=== PATIENT | female | born 1950 | race Caucasian/White ===

== ENCOUNTER 2021-01-06 12:05 | Outpatient (CLI) | payer MEDICARE | END 2021-01-06 12:06 | disposition home or self-care (01) | LOC: CSHRAD 12:05 | PROVIDERS: ATTEND Surgery | DX: S32.009A Unspecified fracture of unspecified lumbar vertebra, initial encounter for closed fracture (principal); M48.061 Spinal stenosis, lumbar region without neurogenic claudication; S32.041D Stable burst fracture of fourth lumbar vertebra, subsequent encounter for fracture with routine healing | CPT/HCPCS: 72100 ==

== ENCOUNTER 2021-07-12 16:16 | Emergency (ER) | payer MEDICARE | END 2021-07-12 18:08 | disposition home or self-care (01) | LOC: CSHERS 16:16 | DX: T25.211A Burn of second degree of right ankle, initial encounter (principal); T31.0 Burns involving less than 10% of body surface; T79.8XXA Other early complications of trauma, initial encounter; R23.8 Other skin changes; I10 Essential (primary) hypertension; E11.40 Type 2 diabetes mellitus with diabetic neuropathy, unspecified; F17.210 Nicotine dependence, cigarettes, uncomplicated; X10.0XXA Contact with hot drinks, initial encounter; Z79.84 Long term (current) use of oral hypoglycemic drugs; Z79.899 Other long term (current) drug therapy | CPT/HCPCS: 99283 ==

== ENCOUNTER 2022-05-11 22:22 | Inpatient (IN) | payer MEDICARE ==
[~2022-05-11 22:22] MED LIST: Iopamidol 370 76% 100 ML VIAL ONE
[2022-05-11] MEDS ORDERED: Cefepime 2 GM VIAL ONE (22:53)
[2022-05-11 23:30] LABS: Hemoglobin 13.6 g/dL (12.0-15.5); Mean Corpuscular HGB CONC 32.4 g/dL (32.0-36.0); Mean Corpuscular Hemoglobin 26.1 pg (27.0-33.0); Mean Corpuscular Volume 80.6 fl (81.6-98.3); Mean Platelet Volume 10.8 fl (7.4-10.4); Platelet Count 334 10x3/uL (150-450); RBC Distribution Width 16.6 % (11.5-14.5); Red Blood Cell (RBC) Count 5.21 10x6/uL (3.90-5.03); White Blood Cell (WBC) Count 33.2 10x3/uL (3.5-10.5)
[2022-05-11 23:46] LABS: Bilirubin Neg (Negative); Blood, Urine 25 (Negative); Clarity Cloudy (Clear); Glucose, Urine (Dipstick) 50 mg/dL (Negative); Ketone, Urine 5 mg/dL (Negative); Leukocyte 100 (Negative); Nitrite Positive (Negative); Protein, Urine (Dipstick) 500 mg/dl (Neg-Trace); Urobilinogen Normal mg/dL (Less than 2)
[2022-05-11 23:47] LABS: ALT (SGPT) 13 U/L (8-55); AST (SGOT) 14 U/L (5-34); Albumin 4.2 g/dL (3.4-4.8); Alkaline Phosphatase 91 U/L (40-110); Anion Gap 16 mmol/L (10-20); BUN (Urea Nitrogen) 16 mg/dL (9.8-20.1); Bilirubin, Total 0.5 mg/dL (0.2-1.2); Calc. Creatinine Clearance 0 mL/min (70-130); Calcium 9.4 mg/dL (7.8-10.44); Carbon Dioxide 27 mmol/L (23-31); Chloride 101 mmol/L (98-107); Estimated GFR 79; Globulin 3.5 g/dL (2.4-3.5); Glucose 232 mg/dL (80-115); Potassium 3.5 mmol/L (3.5-5.1); Protein, Total 7.7 g/dL (5.8-8.1); Sodium 140 mmol/L (136-145)
[2022-05-12 00:19] LABS: MDiff Complete? YES
[2022-05-12 00:28] LABS: Bacteria/HPF 3+ HPF (None Seen); RBC/HPF 0-3 HPF (0-3); Renal Epithelial 0-3 HPF (None Seen); WBC/HPF 21-50 HPF (0-3)
[2022-05-12 00:40] LABS: SARS-CoV-2 NAA Rapid Test Not Detected (NotDetected)
[2022-05-12 01:04] LABS: Lymphocytes 4 % (21-51); Monocytes 2 % (0-10); Neutrophil 94 % (42-75)
[2022-05-12 01:05] LABS: Platelet Morphology Comment Appears Adequate; RBC Morphology Normal
[2022-05-12] MEDS ORDERED: Senokot S 8.6-50 MG TAB PO PRN (02:10)
[2022-05-12] MEDS ORDERED: Dextrose 50% Abboject 50 ML SYRINGE SLOW IVP PRN ×2 (02:10→11:59)
[2022-05-12] MEDS ORDERED: Ondansetron PF 4 MG/2 ML Vial IVP PRN (02:10)
[2022-05-12] MEDS ORDERED: Calcium Carbonate 500 MG ChewTAB PO PRN (02:10)
[2022-05-12] MEDS ORDERED: Dextrose 5% in Water 1,000 ML IV PRN ×2 (02:10→11:59)
[2022-05-12] MEDS ORDERED: Guaifenesin DM 100-10/5 ML UDCUP PO PRN (02:10)
[2022-05-12] MEDS ORDERED: Pharmacy to Dose ABX/VANCOMYCIN IVPB PRN (02:26)
[2022-05-12] MEDS ORDERED: Lactated Ringer's 1,000 ML IV SCH (03:15)
[2022-05-12 05:18] LABS: Hemoglobin 12.2 g/dL (12.0-15.5); Mean Corpuscular Hemoglobin 26.1 pg (27.0-33.0); Mean Corpuscular Volume 81.6 fl (81.6-98.3); Mean Platelet Volume 11.1 fl (7.4-10.4); Platelet Count 280 10x3/uL (150-450); Red Blood Cell (RBC) Count 4.67 10x6/uL (3.90-5.03); White Blood Cell (WBC) Count 29.2 10x3/uL (3.5-10.5)
[2022-05-12 05:35] LABS: Anion Gap 11 mmol/L (10-20); BUN (Urea Nitrogen) 15 mg/dL (9.8-20.1); Calc. Creatinine Clearance 0 mL/min (70-130); Calcium 8.3 mg/dL (7.8-10.44); Carbon Dioxide 25 mmol/L (23-31); Chloride 105 mmol/L (98-107); Estimated GFR 86; Glucose 204 mg/dL (80-115); Potassium 3.3 mmol/L (3.5-5.1); Sodium 138 mmol/L (136-145)
[2022-05-12] MEDS: Levothyroxine Sodium 50 MCG TAB PO SCH (05:58)
[2022-05-12 06:27] LABS: MDiff Complete? YES
[2022-05-12] MEDS ORDERED: Acetaminophen 325 MG TAB ONE (06:49)
[2022-05-12] MEDS: Acetaminophen 325 MG TAB PO PRN (07:00)
[2022-05-12] MEDS ORDERED: Enoxaparin Sodium 40 MG/0.4 ML SYRINGE ONE (07:59)
[2022-05-12] MEDS ORDERED: Insulin Regular 300 UNITS/3 ML VIAL ONE (07:59)
[2022-05-12] MEDS: Enoxaparin Sodium 40 MG/0.4 ML SYRINGE SC SCH (08:59)
[2022-05-12] MEDS: Ezetimibe 10 MG TAB PO SCH (08:59)
[2022-05-12] MEDS ORDERED: Alogliptin 25 MG TAB PO SCH (09:00)
[2022-05-12] MEDS: Cefepime 1 GM in Sodium Chloride 0.9% 100 ML IVPB SCH ×2 (11:36→23:42)
[2022-05-12] MEDS ORDERED: Cefepime 1 GM VIAL ONE (11:48)
[2022-05-12 11:50] VITALS: BMI 39.4
[2022-05-12] MEDS: Vancomycin HCl 1 GM in Sodium Chloride 0.9% 250 ML 250 ML IVPB SCH (12:34)
[2022-05-13] MEDS: Vancomycin HCl 1 GM in Sodium Chloride 0.9% 250 ML 250 ML IVPB SCH ×2 (01:15→11:10)
[2022-05-13] MEDS: Levothyroxine Sodium 50 MCG TAB PO SCH (06:32)
[2022-05-13] MEDS: Enoxaparin Sodium 40 MG/0.4 ML SYRINGE SC SCH (08:49)
[2022-05-13] MEDS: Alogliptin 25 MG TAB PO SCH (08:49)
[2022-05-13] MEDS: Gabapentin 300 MG CAP PO SCH ×2 (08:49→20:30)
[2022-05-13] MEDS: Ezetimibe 10 MG TAB PO SCH (08:50)
[2022-05-13] MEDS: Lisinopril 20 MG TAB PO SCH (08:50)
[2022-05-13] MEDS: Hydrochlorothiazide 25 MG TAB PO SCH (08:50)
[2022-05-13] MEDS: Cefepime 1 GM in Sodium Chloride 0.9% 100 ML IVPB SCH ×2 (11:10→23:29)
[2022-05-13] MEDS ORDERED: Cefepime 1 GM VIAL ONE (11:13)
[2022-05-13 11:32] LABS: Vancomycin, Trough 9.9 ug/mL
[2022-05-13] MEDS: metFORMIN 500 MG TAB PO SCH (18:03)
[2022-05-13] MEDS: Rosuvastatin 10 MG TAB PO SCH (20:30)
[2022-05-13] MEDS: Acetaminophen 325 MG TAB PO PRN (23:32)
[2022-05-14] MEDS: VANCOMYCIN 1.25 GM/250 ML BAG 1.25 GM in Premix Bag 1 BAG IVPB SCH ×2 (01:11→12:12)
[2022-05-14] MEDS: HumaLOG 300 UNITS/3 ML VIAL SC PRN ×2 (01:14→12:30)
[2022-05-14] MEDS: Levothyroxine Sodium 50 MCG TAB PO SCH (07:17)
[2022-05-14 08:53] LABS: #Basophils 0.1 10x3/uL (0.0-0.2); #Eosinphils 0.5 10x3/uL (0.0-0.5); #Monocytes 0.9 10x3/uL (0.0-1.1); #Neutrophils 8.4 10x3/uL (1.5-8.4); %Basophils 0.5 % (0.0-2.0); %Eosinophils 4.5 % (0.0-6.0); %Lymphocytes 17.3 % (18.0-47.0); %Monocytes 7.8 % (0.0-10.0); %Neutrophils 69.2 % (40.0-75.0); Hemoglobin 11.8 g/dL (12.0-15.5); Mean Corpuscular HGB CONC 30.1 g/dL (32.0-36.0); Mean Corpuscular Hemoglobin 24.8 pg (27.0-33.0); Mean Corpuscular Volume 82.4 fl (81.6-98.3); Mean Platelet Volume 10.8 fl (7.4-10.4); Platelet Count 295 10x3/uL (150-450); RBC Distribution Width 16.8 % (11.5-14.5); Red Blood Cell (RBC) Count 4.76 10x6/uL (3.90-5.03); White Blood Cell (WBC) Count 12.1 10x3/uL (3.5-10.5)
[2022-05-14] MEDS: metFORMIN 500 MG TAB PO SCH ×2 (08:56→16:07)
[2022-05-14] MEDS: Ezetimibe 10 MG TAB PO SCH (08:56)
[2022-05-14] MEDS: Enoxaparin Sodium 40 MG/0.4 ML SYRINGE SC SCH (08:56)
[2022-05-14] MEDS: Hydrochlorothiazide 25 MG TAB PO SCH (08:56)
[2022-05-14] MEDS: Lisinopril 20 MG TAB PO SCH (08:56)
[2022-05-14] MEDS: Alogliptin 25 MG TAB PO SCH (08:56)
[2022-05-14] MEDS: Gabapentin 300 MG CAP PO SCH ×2 (08:57→21:30)
[2022-05-14 09:14] LABS: Anion Gap 14 mmol/L (10-20); BUN (Urea Nitrogen) 16 mg/dL (9.8-20.1); Calc. Creatinine Clearance 126 mL/min (70-130); Calcium 8.7 mg/dL (7.8-10.44); Carbon Dioxide 25 mmol/L (23-31); Chloride 103 mmol/L (98-107); Estimated GFR 86; Glucose 173 mg/dL (80-115); Magnesium 2.1 mg/dL (1.6-2.6); Potassium 3.2 mmol/L (3.5-5.1); Sodium 139 mmol/L (136-145)
[2022-05-14] MEDS ORDERED: Polyethylene Glycol 3350 17 GM Packet PO SCH (11:45)
[2022-05-14] MEDS: Cefepime 2 GM in Sodium Chloride 0.9% 100 ML IVPB SCH ×2 (12:12→23:00)
[2022-05-14 12:56] LABS: Hemoglobin A1c 7.9 % (4.0-6.0)
[2022-05-14] MEDS: Rosuvastatin 10 MG TAB PO SCH (21:30)
[2022-05-14] MEDS: Senokot S 8.6-50 MG TAB PO SCH (22:16)
[2022-05-15] MEDS: VANCOMYCIN 1.25 GM/250 ML BAG 1.25 GM in Premix Bag 1 BAG IVPB SCH (00:57)
[2022-05-15] MEDS: Levothyroxine Sodium 50 MCG TAB PO SCH (05:49)
[2022-05-15 05:51] LABS: #Basophils 0.1 10x3/uL (0.0-0.2); #Eosinphils 0.7 10x3/uL (0.0-0.5); #Monocytes 0.9 10x3/uL (0.0-1.1); #Neutrophils 6.4 10x3/uL (1.5-8.4); %Basophils 0.6 % (0.0-2.0); %Eosinophils 6.7 % (0.0-6.0); %Lymphocytes 23.7 % (18.0-47.0); %Neutrophils 60.4 % (40.0-75.0); Hemoglobin 11.3 g/dL (12.0-15.5); Mean Corpuscular Hemoglobin 25.5 pg (27.0-33.0); Mean Corpuscular Volume 82.2 fl (81.6-98.3); Mean Platelet Volume 11.2 fl (7.4-10.4); Platelet Count 282 10x3/uL (150-450); RBC Distribution Width 16.3 % (11.5-14.5); Red Blood Cell (RBC) Count 4.43 10x6/uL (3.90-5.03); White Blood Cell (WBC) Count 10.6 10x3/uL (3.5-10.5)
[2022-05-15 06:08] LABS: ALT (SGPT) 13 U/L (8-55); AST (SGOT) 15 U/L (5-34); Albumin 3.3 g/dL (3.4-4.8); Alkaline Phosphatase 68 U/L (40-110); Anion Gap 14 mmol/L (10-20); BUN (Urea Nitrogen) 15 mg/dL (9.8-20.1); Bilirubin, Direct 0.1 mg/dL (0.1-0.3); Bilirubin, Total 0.4 mg/dL (0.2-1.2); Calc. Creatinine Clearance 131 mL/min (70-130); Calcium 8.5 mg/dL (7.8-10.44); Carbon Dioxide 24 mmol/L (23-31); Chloride 105 mmol/L (98-107); Cholesterol 203 mg/dl (< 200 Desired); Estimated GFR 90; Glucose 174 mg/dL (80-115); HDL Cholesterol 29 mg/dL (>60 Neg Risk); LDL Cholesterol, Calculated 129 mg/dL; Magnesium 1.9 mg/dL (1.6-2.6); Potassium 3.1 mmol/L (3.5-5.1); Protein, Total 6.1 g/dL (5.8-8.1); Sodium 140 mmol/L (136-145); Triglycerides 224 mg/dL (Less than 150)
[2022-05-15] MEDS: Hydrochlorothiazide 25 MG TAB PO SCH (08:31)
[2022-05-15] MEDS: Lisinopril 20 MG TAB PO SCH (08:31)
[2022-05-15] MEDS: Senokot S 8.6-50 MG TAB PO SCH ×2 (08:31→22:24)
[2022-05-15] MEDS: Enoxaparin Sodium 40 MG/0.4 ML SYRINGE SC SCH (08:31)
[2022-05-15] MEDS: Alogliptin 25 MG TAB PO SCH (08:31)
[2022-05-15] MEDS: Ezetimibe 10 MG TAB PO SCH (08:31)
[2022-05-15] MEDS: Polyethylene Glycol 3350 17 GM Packet PO SCH (08:31)
[2022-05-15] MEDS: Gabapentin 300 MG CAP PO SCH ×2 (08:31→22:23)
[2022-05-15] MEDS: metFORMIN 500 MG TAB PO SCH ×2 (08:31→16:43)
[2022-05-15] MEDS ORDERED: hydrALAZINE 20 MG/ML VIAL SLOW IVP PRN (10:17)
[2022-05-15] MEDS: HumaLOG 300 UNITS/3 ML VIAL SC PRN ×3 (12:15→22:24)
[2022-05-15] MEDS: Potassium Chloride 20 MEQ TAB PO SCH (12:15)
[2022-05-15] MEDS: Rosuvastatin 10 MG TAB PO SCH (22:24)
[2022-05-15] MEDS: Ciprofloxacin 500 MG TAB PO SCH (22:24)
[2022-05-16] MEDS: Ciprofloxacin 500 MG TAB PO SCH ×2 (06:02→21:44)
[2022-05-16] MEDS: Levothyroxine Sodium 50 MCG TAB PO SCH (06:02)
[2022-05-16] MEDS: HumaLOG 300 UNITS/3 ML VIAL SC PRN ×4 (06:04→21:45)
[2022-05-16 06:18] LABS: #Basophils 0.1 10x3/uL (0.0-0.2); #Eosinphils 0.7 10x3/uL (0.0-0.5); #Monocytes 0.8 10x3/uL (0.0-1.1); #Neutrophils 6.7 10x3/uL (1.5-8.4); %Basophils 0.7 % (0.0-2.0); %Eosinophils 6.3 % (0.0-6.0); %Lymphocytes 21.5 % (18.0-47.0); %Monocytes 7.8 % (0.0-10.0); %Neutrophils 62.7 % (40.0-75.0); Hemoglobin 11.2 g/dL (12.0-15.5); Mean Corpuscular HGB CONC 31.4 g/dL (32.0-36.0); Mean Corpuscular Hemoglobin 25.6 pg (27.0-33.0); Mean Corpuscular Volume 81.7 fl (81.6-98.3); Mean Platelet Volume 11.3 fl (7.4-10.4); Platelet Count 293 10x3/uL (150-450); RBC Distribution Width 16.1 % (11.5-14.5); Red Blood Cell (RBC) Count 4.37 10x6/uL (3.90-5.03); White Blood Cell (WBC) Count 10.8 10x3/uL (3.5-10.5)
[2022-05-16 06:38] LABS: Anion Gap 12 mmol/L (10-20); BUN (Urea Nitrogen) 15 mg/dL (9.8-20.1); Calc. Creatinine Clearance 133 mL/min (70-130); Calcium 8.7 mg/dL (7.8-10.44); Carbon Dioxide 28 mmol/L (23-31); Chloride 103 mmol/L (98-107); Estimated GFR 91; Glucose 207 mg/dL (80-115); Magnesium 1.7 mg/dL (1.6-2.6); Potassium 3.2 mmol/L (3.5-5.1); Sodium 140 mmol/L (136-145)
[2022-05-16] MEDS: Enoxaparin Sodium 40 MG/0.4 ML SYRINGE SC SCH (08:56)
[2022-05-16] MEDS: Lisinopril 20 MG TAB PO SCH (08:56)
[2022-05-16] MEDS: Ezetimibe 10 MG TAB PO SCH (08:56)
[2022-05-16] MEDS: Hydrochlorothiazide 25 MG TAB PO SCH (08:56)
[2022-05-16] MEDS: Gabapentin 300 MG CAP PO SCH ×2 (08:57→21:44)
[2022-05-16] MEDS: Alogliptin 25 MG TAB PO SCH (08:57)
[2022-05-16] MEDS: Polyethylene Glycol 3350 17 GM Packet PO SCH (08:57)
[2022-05-16] MEDS: metFORMIN 500 MG TAB PO SCH ×2 (08:57→16:42)
[2022-05-16] MEDS: Potassium Chloride 20 MEQ TAB PO SCH ×3 (08:57→16:42)
[2022-05-16] MEDS: Senokot S 8.6-50 MG TAB PO SCH ×2 (08:57→21:51)
[2022-05-16] MEDS ORDERED: Lantus 1000 UNITS/10 ML VIAL SC SCH (21:00)
[2022-05-16] MEDS: Rosuvastatin 10 MG TAB PO SCH (21:44)
[2022-05-16] MEDS: Acetaminophen 325 MG TAB PO PRN (21:54)
[2022-05-17 04:56] LABS: #Basophils 0.1 10x3/uL (0.0-0.2); #Eosinphils 0.8 10x3/uL (0.0-0.5); #Monocytes 0.8 10x3/uL (0.0-1.1); #Neutrophils 7.4 10x3/uL (1.5-8.4); %Basophils 0.8 % (0.0-2.0); %Eosinophils 6.7 % (0.0-6.0); %Lymphocytes 21.2 % (18.0-47.0); %Monocytes 6.4 % (0.0-10.0); Hemoglobin 11.3 g/dL (12.0-15.5); Mean Corpuscular HGB CONC 31.1 g/dL (32.0-36.0); Mean Corpuscular Hemoglobin 25.5 pg (27.0-33.0); Mean Corpuscular Volume 81.9 fl (81.6-98.3); Mean Platelet Volume 10.7 fl (7.4-10.4); Platelet Count 291 10x3/uL (150-450); Red Blood Cell (RBC) Count 4.43 10x6/uL (3.90-5.03); White Blood Cell (WBC) Count 11.8 10x3/uL (3.5-10.5)
[2022-05-17 05:09] LABS: Anion Gap 16 mmol/L (10-20); BUN (Urea Nitrogen) 16 mg/dL (9.8-20.1); Calc. Creatinine Clearance 126 mL/min (70-130); Calcium 8.5 mg/dL (7.8-10.44); Carbon Dioxide 25 mmol/L (23-31); Chloride 104 mmol/L (98-107); Estimated GFR 86; Glucose 210 mg/dL (80-115); Magnesium 1.8 mg/dL (1.6-2.6); Potassium 3.8 mmol/L (3.5-5.1); Sodium 141 mmol/L (136-145)
[2022-05-17] MEDS: HumaLOG 300 UNITS/3 ML VIAL SC PRN ×3 (06:33→16:34)
[2022-05-17] MEDS: Levothyroxine Sodium 50 MCG TAB PO SCH (06:34)
[2022-05-17] MEDS: Ciprofloxacin 500 MG TAB PO SCH ×2 (06:34→21:23)
[2022-05-17] MEDS: Enoxaparin Sodium 40 MG/0.4 ML SYRINGE SC SCH (09:04)
[2022-05-17] MEDS: Polyethylene Glycol 3350 17 GM Packet PO SCH (09:04)
[2022-05-17] MEDS: Alogliptin 25 MG TAB PO SCH (09:04)
[2022-05-17] MEDS: Hydrochlorothiazide 25 MG TAB PO SCH (09:05)
[2022-05-17] MEDS: Ezetimibe 10 MG TAB PO SCH (09:05)
[2022-05-17] MEDS: Gabapentin 300 MG CAP PO SCH ×2 (09:05→21:22)
[2022-05-17] MEDS: Senokot S 8.6-50 MG TAB PO SCH ×2 (09:05→21:23)
[2022-05-17] MEDS: Lisinopril 20 MG TAB PO SCH (09:05)
[2022-05-17] MEDS: metFORMIN 500 MG TAB PO SCH (16:33)
[2022-05-17] MEDS ORDERED: Lantus 1000 UNITS/10 ML VIAL SC SCH ×2 (21:00)
[2022-05-17] MEDS: Rosuvastatin 10 MG TAB PO SCH (21:23)
[2022-05-17] MEDS: Acetaminophen 325 MG TAB PO PRN (21:23)
[2022-05-18 04:48] LABS: #Basophils 0.1 10x3/uL (0.0-0.2); #Eosinphils 0.8 10x3/uL (0.0-0.5); #Monocytes 0.8 10x3/uL (0.0-1.1); #Neutrophils 9.4 10x3/uL (1.5-8.4); %Basophils 0.6 % (0.0-2.0); %Eosinophils 5.3 % (0.0-6.0); %Monocytes 5.9 % (0.0-10.0); %Neutrophils 66.6 % (40.0-75.0); Hemoglobin 11.6 g/dL (12.0-15.5); Mean Corpuscular HGB CONC 32.3 g/dL (32.0-36.0); Mean Corpuscular Hemoglobin 25.8 pg (27.0-33.0); Mean Corpuscular Volume 79.8 fl (81.6-98.3); Mean Platelet Volume 10.8 fl (7.4-10.4); Platelet Count 304 10x3/uL (150-450); RBC Distribution Width 15.9 % (11.5-14.5); White Blood Cell (WBC) Count 14.1 10x3/uL (3.5-10.5)
[2022-05-18 04:59] LABS: Anion Gap 14 mmol/L (10-20); BUN (Urea Nitrogen) 13 mg/dL (9.8-20.1); Calc. Creatinine Clearance 131 mL/min (70-130); Calcium 9.1 mg/dL (7.8-10.44); Carbon Dioxide 28 mmol/L (23-31); Chloride 100 mmol/L (98-107); Estimated GFR 90; Glucose 191 mg/dL (80-115); Magnesium 1.8 mg/dL (1.6-2.6); Potassium 3.5 mmol/L (3.5-5.1); Sodium 138 mmol/L (136-145)
[2022-05-18] MEDS: Levothyroxine Sodium 50 MCG TAB PO SCH (06:21)
[2022-05-18] MEDS: Ciprofloxacin 500 MG TAB PO SCH ×2 (06:21→20:31)
[2022-05-18] MEDS: HumaLOG 300 UNITS/3 ML VIAL SC PRN ×3 (06:25→17:28)
[2022-05-18] MEDS: Alogliptin 25 MG TAB PO SCH (09:07)
[2022-05-18] MEDS: Polyethylene Glycol 3350 17 GM Packet PO SCH (09:07)
[2022-05-18] MEDS: Enoxaparin Sodium 40 MG/0.4 ML SYRINGE SC SCH (09:07)
[2022-05-18] MEDS: Hydrochlorothiazide 25 MG TAB PO SCH (09:08)
[2022-05-18] MEDS: metFORMIN 500 MG TAB PO SCH ×2 (09:08→17:28)
[2022-05-18] MEDS: Lisinopril 20 MG TAB PO SCH (09:08)
[2022-05-18] MEDS: Ezetimibe 10 MG TAB PO SCH (09:09)
[2022-05-18] MEDS: Gabapentin 300 MG CAP PO SCH ×2 (09:09→20:31)
[2022-05-18] MEDS: Senokot S 8.6-50 MG TAB PO SCH ×2 (11:11→20:31)
[2022-05-18 16:56] LABS: Bilirubin Neg (Negative); Blood, Urine Negative (Negative); Clarity Slightly Cloudy (Clear); Glucose, Urine (Dipstick) Normal (Negative); Ketone, Urine Negative (Negative); Leukocyte Negative (Negative); Nitrite Negative (Negative); Protein, Urine (Dipstick) 100 mg/dl (Neg-Trace); Specific Gravity, Urine 1.005 (1.002-1.036)
[2022-05-18 16:58] LABS: Urine Culture Reflex No No
[2022-05-18 17:03] LABS: RBC/HPF 0-3 HPF (0-3); Squamous Epithelial 0-3 HPF (0-3); WBC/HPF 0-3 HPF (0-3)
[2022-05-18 17:04] LABS: Bacteria/HPF None Seen HPF (None Seen)
[2022-05-18] MEDS: Rosuvastatin 10 MG TAB PO SCH (20:31)
[2022-05-18] MEDS ORDERED: Lantus 1000 UNITS/10 ML VIAL SC SCH (21:00)
[2022-05-19] MEDS: Acetaminophen 325 MG TAB PO PRN (00:43)
[2022-05-19] MEDS: HumaLOG 300 UNITS/3 ML VIAL SC PRN ×2 (00:50→05:49)
[2022-05-19 05:09] LABS: Anion Gap 14 mmol/L (10-20); BUN (Urea Nitrogen) 16 mg/dL (9.8-20.1); Calc. Creatinine Clearance 129 mL/min (70-130); Calcium 8.8 mg/dL (7.8-10.44); Carbon Dioxide 28 mmol/L (23-31); Chloride 102 mmol/L (98-107); Estimated GFR 88; Glucose 171 mg/dL (80-115); Magnesium 1.9 mg/dL (1.6-2.6); Potassium 3.4 mmol/L (3.5-5.1); Sodium 141 mmol/L (136-145)
[2022-05-19 05:19] LABS: #Basophils 0.1 10x3/uL (0.0-0.2); #Eosinphils 0.7 10x3/uL (0.0-0.5); #Monocytes 0.9 10x3/uL (0.0-1.1); #Neutrophils 8.7 10x3/uL (1.5-8.4); %Basophils 0.8 % (0.0-2.0); %Eosinophils 5.4 % (0.0-6.0); %Lymphocytes 20.7 % (18.0-47.0); %Monocytes 6.4 % (0.0-10.0); %Neutrophils 65.1 % (40.0-75.0); Mean Corpuscular HGB CONC 31.4 g/dL (32.0-36.0); Mean Corpuscular Hemoglobin 25.5 pg (27.0-33.0); Mean Corpuscular Volume 81.3 fl (81.6-98.3); Mean Platelet Volume 11.1 fl (7.4-10.4); Platelet Count 330 10x3/uL (150-450); RBC Distribution Width 16.2 % (11.5-14.5); White Blood Cell (WBC) Count 13.4 10x3/uL (3.5-10.5)
[2022-05-19] MEDS: Levothyroxine Sodium 50 MCG TAB PO SCH (05:47)
[2022-05-19] MEDS: Ciprofloxacin 500 MG TAB PO SCH (05:47)
[2022-05-19] MEDS ORDERED: Potassium Chloride 20 MEQ TAB PO SCH (07:00)
[2022-05-19] MEDS ORDERED: Magnesium 2 GM/50 ML(in water) 2 GM in Premix Bag 1 BAG IVPB SCH (08:00)
[2022-05-19] MEDS: Gabapentin 300 MG CAP PO SCH (08:15)
[2022-05-19] MEDS: Enoxaparin Sodium 40 MG/0.4 ML SYRINGE SC SCH (08:15)
[2022-05-19] MEDS: Lisinopril 20 MG TAB PO SCH (08:16)
[2022-05-19] MEDS: Ezetimibe 10 MG TAB PO SCH (08:16)
[2022-05-19] MEDS: Alogliptin 25 MG TAB PO SCH (08:16)
[2022-05-19] MEDS: metFORMIN 500 MG TAB PO SCH (08:16)
[2022-05-19] MEDS: Senokot S 8.6-50 MG TAB PO SCH (08:17)
[2022-05-19] MEDS: Polyethylene Glycol 3350 17 GM Packet PO SCH (08:17)
[2022-05-19] MEDS: Hydrochlorothiazide 25 MG TAB PO SCH (08:18)
[2022-05-19 13:00] VITALS: TEMP 97.7
[2022-05-19 13:41] VITALS: BP 180/95
[2022-05-19] MEDS ORDERED: Lantus 1000 UNITS/10 ML VIAL SC SCH (21:00)
== END 2022-05-19 16:35 | disposition home or self-care (01) | DRG 871 ==
LOC: CSHERS 22:22 → CSHERHOLD 05-12 03:00 → CSHTELE 05-12 14:46
PROVIDERS: ADMIT Student in an Organized Health Care Education/Training Program; ATTEND Family Medicine
PROC: 3E03329 Introduction of Other Anti-infective into Peripheral Vein, Percutaneous Approach (ICD-10-PCS; 2022-05-12)
PROC: 5A09457 Assistance with Respiratory Ventilation, 24-96 Consecutive Hours, Continuous Positive Airway Pressure (ICD-10-PCS; principal; 2022-05-13)
DX: A41.50 Gram-negative sepsis, unspecified (principal); J96.01 Acute respiratory failure with hypoxia; J98.11 Atelectasis; N39.0 Urinary tract infection, site not specified; R65.20 Severe sepsis without septic shock; I10 Essential (primary) hypertension; E78.5 Hyperlipidemia, unspecified; G47.33 Obstructive sleep apnea (adult) (pediatric); E03.9 Hypothyroidism, unspecified; Z20.822 Contact with and (suspected) exposure to COVID-19; E86.0 Dehydration; I51.7 Cardiomegaly; E11.65 Type 2 diabetes mellitus with hyperglycemia; E66.01 Morbid (severe) obesity due to excess calories; Z68.39 Body mass index [BMI] 39.0-39.9, adult; Z90.710 Acquired absence of both cervix and uterus; Z87.891 Personal history of nicotine dependence
CPT/HCPCS: 36415; 36416; 70450; 71045; 71275; 74177; 80048; 80053; 80061; 80076; 80202; 81001; 81003; 81015; 83036; 83605; 83735; 83880; 84439; 84443; 84484; 85025; 86140; 87040; 87086; 93005; 93306; 94760; 96365; 96366; 96367; J0692; J1650; J1815; J3370; J3475; J3490; J7050; J7120; Q9967; U0002; U0003; U0005

== ENCOUNTER 2024-10-01 20:19 | Inpatient (IN) | payer MEDICARE ==
[2024-10-01 21:47] LABS: #Basophils 0.05 10x3/uL (0.0-0.2); #Eosinophils Less than 0.03 10x3/uL (0.0-0.5); #Monocytes 0.77 10x3/uL (0.0-1.1); %Basophils 0.3 % (0.0-2.0); %Eosinophils 0.1 % (0.0-6.0); %Lymphocytes 9.7 % (18.0-47.0); %Neutrophils 85.3 % (40.0-75.0); Hematocrit 42.8 % (34.9-44.5); Hemoglobin 13.9 g/dL (12.0-15.5); Mean Corpuscular HGB CONC 32.5 g/dL (32.0-36.0); Mean Corpuscular Hemoglobin 27.9 pg (27.0-33.0); Mean Corpuscular Volume 85.8 fL (81.6-98.3); Mean Platelet Volume 12.5 fL (7.4-10.4); Platelet Count 322 10x3/uL (150-450); RBC Distribution Width 16.7 % (11.5-14.5); Red Blood Cell (RBC) Count 4.99 10x6/uL (3.90-5.03); White Blood Cell (WBC) Count 19.21 10x3/uL (3.5-10.5)
[2024-10-01 21:54] LABS: Bilirubin 1+ (Negative); Blood, Urine 50 (Negative); Clarity Cloudy (Clear); Glucose, Urine (Dipstick) Normal (Negative); Ketone, Urine Negative (Negative); Leukocyte 500 (Negative); Nitrite Negative (Negative); Protein, Urine (Dipstick) 500 mg/dl (Neg-Trace); Specific Gravity, Urine 1.025 (1.005-1.030)
[2024-10-01 22:02] LABS: ALT (SGPT) 10 U/L (8-55); AST (SGOT) 20 U/L (5-34); Alkaline Phosphatase 51 U/L (40-110); Anion Gap 15 mmol/L (10-20); BUN (Urea Nitrogen) 37 mg/dL (9.8-20.1); Bilirubin, Total 0.6 mg/dL (0.2-1.2); Calc. Creatinine Clearance 0 mL/min (70-130); Calcium 8.2 mg/dL (7.8-10.44); Carbon Dioxide 22 mmol/L (23-31); Chloride 106 mmol/L (98-107); Estimated GFR 22; Globulin 3.2 g/dL (2.4-3.5); Glucose 140 mg/dL (83-110); Potassium 3.5 mmol/L (3.5-5.1); Protein, Total 6.2 g/dL (5.8-8.1); Sodium 139 mmol/L (136-145)
[2024-10-01 22:34] LABS: CAUTI Indications for Culture Dysuria,urgency,freq; WBC/HPF Greater than 50 HPF (0-3)
[2024-10-01 22:35] LABS: Bacteria/HPF 4+ HPF (None Seen)
[2024-10-01 22:41] LABS: Yeast-Hyphae 1+ HPF (None Seen)
[2024-10-01 22:42] LABS: Mucous/LPF 1+ LPF (<2+); Waxy Cast 0-3 LPF (None Seen)
[2024-10-01 22:44] LABS: Urine Culture Reflex Yes Yes
[2024-10-01] MEDS ORDERED: cefTRIAXone (ROCEPHIN) 1 GM VIAL ONE (23:02)
[2024-10-01] MEDS ORDERED: Glucagon 1 MG/ML KIT IM PRN (23:19)
[2024-10-01] MEDS ORDERED: Dextrose 50% Abboject 50 ML SYRINGE SLOW IVP PRN (23:19)
[2024-10-01] MEDS ORDERED: Dextrose 5% in Water 1,000 ML IV PRN (23:19)
[2024-10-01] MEDS ORDERED: Insulin Lispro 100 UNIT/ML 10 ML VIAL SC PRN ×2 (23:19)
[2024-10-01] MEDS ORDERED: Ondansetron ODT 4 MG TAB PO PRN (23:20)
[2024-10-01] MEDS ORDERED: Ondansetron PF 4 MG/2 ML Vial IVP PRN (23:20)
[2024-10-01] MEDS ORDERED: traMADol HCl 50 MG TAB PO PRN (23:20)
[2024-10-01] MEDS ORDERED: Lactated Ringer's 1,000 ML IV SCH (23:30)
[2024-10-02] MEDS ORDERED: diphenhydrAMINE 25 MG CAP ONE (00:04)
[2024-10-02] MEDS: Lactated Ringer's 1,000 ML IV SCH (01:46)
[2024-10-02] MEDS: diphenhydrAMINE 25 MG CAP PO SCH (01:47)
[2024-10-02 02:07] VITALS: BMI 38.8
[2024-10-02] MEDS: Acetaminophen 325 MG TAB PO SCH (02:10)
[2024-10-02 04:04] LABS: #Basophils 0.03 10x3/uL (0.0-0.2); #Eosinophils 0.05 10x3/uL (0.0-0.5); #Monocytes 0.82 10x3/uL (0.0-1.1); #Neutrophils 12.69 10x3/uL (1.5-8.4); %Basophils 0.2 % (0.0-2.0); %Eosinophils 0.3 % (0.0-6.0); %Monocytes 5.2 % (0.0-10.0); %Neutrophils 79.9 % (40.0-75.0); Hematocrit 38.1 % (34.9-44.5); Hemoglobin 11.8 g/dL (12.0-15.5); Mean Corpuscular Hemoglobin 26.8 pg (27.0-33.0); Mean Corpuscular Volume 86.4 fL (81.6-98.3); Mean Platelet Volume 11.9 fL (7.4-10.4); Platelet Count 265 10x3/uL (150-450); RBC Distribution Width 16.4 % (11.5-14.5); Red Blood Cell (RBC) Count 4.41 10x6/uL (3.90-5.03); White Blood Cell (WBC) Count 15.87 10x3/uL (3.5-10.5)
[2024-10-02 04:19] LABS: ALT (SGPT) 14 U/L (8-55); AST (SGOT) 24 U/L (5-34); Albumin 2.8 g/dL (3.4-4.8); Alkaline Phosphatase 52 U/L (40-110); Anion Gap 14 mmol/L (10-20); BUN (Urea Nitrogen) 39 mg/dL (9.8-20.1); Bilirubin, Total 0.5 mg/dL (0.2-1.2); Calc. Creatinine Clearance 43 mL/min (70-130); Calcium 7.7 mg/dL (7.8-10.44); Carbon Dioxide 21 mmol/L (23-31); Chloride 109 mmol/L (98-107); Estimated GFR 24; Globulin 2.9 g/dL (2.4-3.5); Glucose 64 mg/dL (83-110); Potassium 3.3 mmol/L (3.5-5.1); Protein, Total 5.7 g/dL (5.8-8.1); Sodium 141 mmol/L (136-145)
[2024-10-02] MEDS: Levothyroxine Sodium 50 MCG TAB PO SCH (06:20)
[2024-10-02] MEDS: Heparin 5,000 UNITS/ML VIAL SC SCH (10:37)
[2024-10-02] MEDS: Famotidine 20 MG TAB PO SCH (10:37)
[2024-10-02] MEDS: Ezetimibe 10 MG TAB PO SCH (10:40)
[2024-10-02 13:23] LABS: Magnesium 2.5 mg/dL (1.6-2.6)
[2024-10-02] MEDS: Potassium Chloride 20 MEQ TAB PO SCH (13:31)
[2024-10-02] MEDS: Metoprolol Succinate XL 25 MG ER.TAB PO SCH (17:31)
[2024-10-02] MEDS: Rosuvastatin 10 MG TAB PO SCH (20:53)
[2024-10-02] MEDS: cefTRIAXone\\ROCEPHIN 2 GM in Sodium Chloride 0.9% 100 ML IVPB SCH (23:38)
[2024-10-03 04:41] LABS: #Basophils 0.03 10x3/uL (0.0-0.2); #Eosinophils 0.23 10x3/uL (0.0-0.5); #Monocytes 0.92 10x3/uL (0.0-1.1); #Neutrophils 10.58 10x3/uL (1.5-8.4); %Basophils 0.2 % (0.0-2.0); %Eosinophils 1.7 % (0.0-6.0); %Lymphocytes 14.4 % (18.0-47.0); %Monocytes 6.7 % (0.0-10.0); %Neutrophils 76.6 % (40.0-75.0); Hematocrit 34.5 % (34.9-44.5); Hemoglobin 11.1 g/dL (12.0-15.5); Mean Corpuscular HGB CONC 32.2 g/dL (32.0-36.0); Mean Corpuscular Hemoglobin 27.6 pg (27.0-33.0); Mean Corpuscular Volume 85.8 fL (81.6-98.3); Mean Platelet Volume 11.7 fL (7.4-10.4); Platelet Count 244 10x3/uL (150-450); RBC Distribution Width 16.3 % (11.5-14.5); Red Blood Cell (RBC) Count 4.02 10x6/uL (3.90-5.03); White Blood Cell (WBC) Count 13.79 10x3/uL (3.5-10.5)
[2024-10-03 04:56] LABS: Anion Gap 12 mmol/L (10-20); BUN (Urea Nitrogen) 30 mg/dL (9.8-20.1); Calc. Creatinine Clearance 74 mL/min (70-130); Calcium 7.8 mg/dL (7.8-10.44); Carbon Dioxide 24 mmol/L (23-31); Chloride 109 mmol/L (98-107); Estimated GFR 47; Glucose 149 mg/dL (83-110); Potassium 3.5 mmol/L (3.5-5.1); Sodium 141 mmol/L (136-145)
[2024-10-03] MEDS: Lisinopril 10 MG TAB PO SCH (08:19)
[2024-10-03] MEDS: Aspirin 81 mg Enteric Coated Tablet PO SCH (08:20)
[2024-10-03] MEDS: Metoprolol Succinate XL 25 MG ER.TAB PO SCH (08:20)
[2024-10-03] MEDS: Potassium Chloride 20 MEQ TAB PO SCH (08:21)
[2024-10-03 09:42] VITALS: BMI 38.8
[2024-10-04 04:20] LABS: #Basophils 0.05 10x3/uL (0.0-0.2); #Eosinophils 0.46 10x3/uL (0.0-0.5); #Monocytes 0.88 10x3/uL (0.0-1.1); #Neutrophils 9.53 10x3/uL (1.5-8.4); %Basophils 0.4 % (0.0-2.0); %Eosinophils 3.5 % (0.0-6.0); %Lymphocytes 15.6 % (18.0-47.0); %Monocytes 6.8 % (0.0-10.0); %Neutrophils 73.3 % (40.0-75.0); Hematocrit 34.7 % (34.9-44.5); Hemoglobin 10.8 g/dL (12.0-15.5); Mean Corpuscular HGB CONC 31.1 g/dL (32.0-36.0); Mean Corpuscular Hemoglobin 26.7 pg (27.0-33.0); Mean Corpuscular Volume 85.9 fL (81.6-98.3); Mean Platelet Volume 11.8 fL (7.4-10.4); Platelet Count 232 10x3/uL (150-450); RBC Distribution Width 16.1 % (11.5-14.5); Red Blood Cell (RBC) Count 4.04 10x6/uL (3.90-5.03)
[2024-10-04 04:30] LABS: Anion Gap 11 mmol/L (10-20); BUN (Urea Nitrogen) 20 mg/dL (9.8-20.1); Calc. Creatinine Clearance 111 mL/min (70-130); Carbon Dioxide 25 mmol/L (23-31); Chloride 109 mmol/L (98-107); Estimated GFR 77; Glucose 129 mg/dL (83-110); Potassium 3.4 mmol/L (3.5-5.1); Sodium 142 mmol/L (136-145)
[2024-10-04] MEDS: Carvedilol 6.25 MG TAB PO SCH ×2 (10:07→17:04)
[2024-10-04] MEDS: Lisinopril 20 MG TAB PO SCH (10:08)
[2024-10-04] MEDS: Potassium Chloride 20 MEQ TAB PO SCH (10:09)
[2024-10-04 12:06] LABS: Influenza A by NAA Not Detected (NotDetected); Influenza B by NAA Not Detected (NotDetected); SARS-CoV-2 NAA Rapid Test Not Detected (NotDetected)
[2024-10-04] MEDS: Loratadine 10 MG TAB PO PRN (17:03)
[2024-10-04] MEDS: guaiFENesin ER 600 MG TAB PO PRN (17:03)
[2024-10-05 03:35] LABS: #Basophils 0.04 10x3/uL (0.0-0.2); #Eosinophils 0.43 10x3/uL (0.0-0.5); #Monocytes 0.85 10x3/uL (0.0-1.1); #Neutrophils 7.48 10x3/uL (1.5-8.4); %Basophils 0.4 % (0.0-2.0); %Eosinophils 3.9 % (0.0-6.0); %Lymphocytes 19.1 % (18.0-47.0); %Monocytes 7.7 % (0.0-10.0); %Neutrophils 68.3 % (40.0-75.0); Hematocrit 35.8 % (34.9-44.5); Hemoglobin 11.1 g/dL (12.0-15.5); Mean Corpuscular Hemoglobin 26.7 pg (27.0-33.0); Mean Corpuscular Volume 86.3 fL (81.6-98.3); Mean Platelet Volume 11.6 fL (7.4-10.4); Platelet Count 251 10x3/uL (150-450); RBC Distribution Width 15.8 % (11.5-14.5); Red Blood Cell (RBC) Count 4.15 10x6/uL (3.90-5.03); White Blood Cell (WBC) Count 10.97 10x3/uL (3.5-10.5)
[2024-10-05 03:52] LABS: Anion Gap 13 mmol/L (10-20); BUN (Urea Nitrogen) 16 mg/dL (9.8-20.1); Calc. Creatinine Clearance 117 mL/min (70-130); Calcium 8.3 mg/dL (7.8-10.44); Carbon Dioxide 26 mmol/L (23-31); Chloride 107 mmol/L (98-107); Estimated GFR 82; Glucose 132 mg/dL (83-110); Potassium 3.7 mmol/L (3.5-5.1); Sodium 142 mmol/L (136-145)
[2024-10-05] MEDS: Potassium Chloride 20 MEQ TAB PO SCH (08:25)
[2024-10-05 16:58] VITALS: TEMP 97.7
[2024-10-05] MEDS: cloNIDine 0.1 MG TAB PO SCH (17:19)
[2024-10-05 18:20] VITALS: BP 154/74
== END 2024-10-05 18:36 | disposition home or self-care (01) | DRG 871 ==
LOC: CSHERS 20:19 → CSHTELE 23:17 → OBSVTOIN 10-02 09:20
PROVIDERS: ADMIT Internal Medicine; ATTEND Family Medicine
DX: A40.9 Streptococcal sepsis, unspecified (principal); J96.01 Acute respiratory failure with hypoxia; N17.9 Acute kidney failure, unspecified; E11.9 Type 2 diabetes mellitus without complications; I10 Essential (primary) hypertension; E78.5 Hyperlipidemia, unspecified; Z66 Do not resuscitate; E03.9 Hypothyroidism, unspecified; E87.6 Hypokalemia; F17.210 Nicotine dependence, cigarettes, uncomplicated; W19.XXXA Unspecified fall, initial encounter; S82.51XA Displaced fracture of medial malleolus of right tibia, initial encounter for closed fracture; S82.831A Other fracture of upper and lower end of right fibula, initial encounter for closed fracture; Z79.890 Hormone replacement therapy; Z79.84 Long term (current) use of oral hypoglycemic drugs; Z79.899 Other long term (current) drug therapy; Z68.38 Body mass index [BMI] 38.0-38.9, adult
CPT/HCPCS: 36415; 36416; 51701; 71045; 74176; 80048; 80053; 81001; 83605; 83735; 83880; 84145; 85025; 87040; 87077; 87086; 87428; 93005; 93010; 93306; 94760; 94762; 96361; 96374; 97139; G0378; G0390; J0696; J1644; J7120

== ENCOUNTER 2025-04-27 21:35 | Emergency (ER) | payer MEDICARE ==
[2025-04-27 23:39] LABS: Glucose, Urine (Dipstick) Normal (Negative); Leukocyte 25 (Negative); Protein, Urine (Dipstick) 500 mg/dl (Neg-Trace); Specific Gravity, Urine 1.015 (1.005-1.030)
[2025-04-27 23:48] LABS: RBC/HPF 0-3 HPF (0-3)
[2025-04-27 23:49] LABS: Bacteria/HPF 3+ HPF (None Seen); CAUTI Indications for Culture Pelvic or flank pain; Urine Culture Reflex Yes Yes
== END 2025-04-28 01:27 | disposition home or self-care (01) ==
LOC: CSHERS 21:35
DX: S30.0XXA Contusion of lower back and pelvis, initial encounter (principal); R82.71 Bacteriuria; E03.9 Hypothyroidism, unspecified; I10 Essential (primary) hypertension; E11.9 Type 2 diabetes mellitus without complications; F17.210 Nicotine dependence, cigarettes, uncomplicated; Z79.84 Long term (current) use of oral hypoglycemic drugs; Z79.890 Hormone replacement therapy; Z79.899 Other long term (current) drug therapy; W05.0XXA Fall from non-moving wheelchair, initial encounter
CPT/HCPCS: 72170; 81001; 87086